=== PATIENT | female | born 1955 | race Caucasian/White ===

== ENCOUNTER → 2024-10-10 | Outpatient (CLI) | payer MEDICARE ==
[~2024-10-10] MED LIST: DENOSUMAB 60 MG/ML SYRINGE SC ONE; LOSARTAN POTASS50 M1 PO; VAGISIL CREAM30 GM V
== END ==
LOC: INJECTION 09:14
PROVIDERS: ATTEND Internal Medicine
DX: M81.0 Age-related osteoporosis without current pathological fracture (principal)

== ENCOUNTER → 2025-04-10 | Outpatient (CLI) | payer MEDICARE ==
[~2025-04-10] MED LIST changes: +ASPIRIN ADULT L81 M1 PO
[2025-04-10 11:06] VITALS: BP 153/72
== END | disposition home or self-care (01) ==
LOC: INJECTION 09:52
PROVIDERS: ATTEND Internal Medicine Endocrinology, Diabetes & Metabolism
DX: I10 Essential (primary) hypertension (principal); M81.0 Age-related osteoporosis without current pathological fracture

== ENCOUNTER → 2025-10-15 | Outpatient (CLI) | payer MEDICARE ==
[~2025-10-15] MED LIST changes: +ALLERGY RELIEF10 M4 PO; +B-100 COMPLEX100 MG PO; +CALCIUM 1,0001 EAC3 PO; +FOLIC ACID B PO; +NASACORT16.9 ML INH; +VAGIFEM10 MCG V; +VITAMIN B6100 MG/2.5 PO
[2025-10-15 11:30] VITALS: BP 114/62
== END | disposition home or self-care (01) ==
LOC: INJECTION 10-14 10:00
PROVIDERS: ATTEND Internal Medicine Endocrinology, Diabetes & Metabolism
DX: M81.0 Age-related osteoporosis without current pathological fracture (principal)